=== PATIENT | female | born 1960 | race Hispanic/Latino ===

== ENCOUNTER → 2024-12-18 | Outpatient (CLI) | payer OTHER ==
--- NOTE | 2024-12-18 16:38 | HMCIMG ---
CERVICAL SPINE RADIOGRAPHS - 2-3 VIEWS INDICATION: Chronic neck pain for years COMPARISON: None FINDINGS: AP, lateral views. Normal lordosis is maintained. No acute fracture or malalignment identified. Prevertebral soft tissues are not swollen. The atlanto-dens interval is within normal limits for patient's age. Vertebral body heights are within normal limits. Moderate to severe disc height loss at the C5-C6 and C6-C7 levels along with mild anterior endplate and posterior endplate spurring associated. Multilevel mild facet disease. Visible lung apices are clear. IMPRESSION: Degenerative changes as described, without acute component.
== END | disposition home or self-care (01) ==
LOC: RAH 15:39
PROVIDERS: ATTEND Internal Medicine
DX: M47.22 Other spondylosis with radiculopathy, cervical region (principal)
CPT/HCPCS: 72040